=== PATIENT | male | born 1985 | race Caucasian/White ===

== ENCOUNTER 2017-11-01 09:54 | Emergency (ER) | payer OTHER ==
[2017-11-01 09:59] VITALS: BP 130/61; PULSE 85; TEMP 99; BMI 26.4
[2017-11-01] MEDS ORDERED: ALBUTEROL SO4 0.083% IH SOL 2.5 MG/3 ML VIAL.NEB. NEB ONE ×2 (10:05→10:06)
--- NOTE | 2017-11-01 10:13 | PDOC ---
History of Present Illness - General Chief Complaint: Cold Symptoms Stated Complaint: COUGH Time Seen by Provider: 11/01/17 10:01 History Source: Patient Exam Limitations: No Limitations - History of Present Illness Initial Comments: 11/01/17 10:10 31 yr male with c/o cough and sore throat for 2-3 days no fever no chills. no vomiting or diarrhea. pt has no PMHX, smoker 1ppd. no foreign travel. Past History - Past Medical History Allergies/Adverse Reactions: Allergies Allergy/AdvReac Type Severity Reaction Status Date / Time No Known Allergies Allergy Verified 11/01/17 09:56 Home Medications: Ambulatory Orders NK [No Known Home Medication] 11/01/17 COPD: No - Suicide/Smoking/Psychosocial Hx Smoking History: Current every day smoker Have you smoked in the past 12 months: Yes Number of Cigarettes Smoked Daily: 15 Information on smoking cessation initiated: Yes 'Breaking Loose' booklet given: 11/01/17 Hx Alcohol Use: No Drug/Substance Use Hx: No Substance Use Type: None Review of Systems - Review of Systems Able to Perform ROS?: Yes Is the patient limited [place] proficient: Yes Constitutional: No: Symptoms Reported HEENTM: Yes: Symptoms Reported Respiratory: Yes: Cough Cardiac (ROS): No: Symptoms Reported ABD/GI: No: Symptoms Reported : No: Symptoms Reported Musculoskeletal: No: Symptoms Reported Integumentary: No: Symptoms Reported Neurological: No: Symptoms reported *Physical Exam - Vital Signs Last Vital Signs Temp Pulse Resp BP Pulse Ox 99.0 F 85 18 130/61 100 11/01/17 09:56 11/01/17 09:56 11/01/17 09:56 11/01/17 09:56 11/01/17 09:56 - Physical Exam General Appearance: Yes: Nourished, Appropriately Dressed HEENT: positive: EOMI, JARROD, TMs Normal, Pharyngeal Erythema. negative: Tonsillar Exudate, Tonsillar Erythema Neck: positive: Supple. negative: Tender Respiratory/Chest: positive: Lungs Clear, Normal Breath Sounds, Other ( productive cough white phlegm ). negative: Chest Tender, Respiratory Distress, Labored Respiration, Rapid RR, Decreased Breath Sounds, Paradoxal Breathing, Crackles, Rales, Rhonchi, Stridor, Wheezing Cardiovascular: positive: Regular Rhythm, Regular Rate Gastrointestinal/Abdominal: positive: Normal Bowel Sounds, Soft Musculoskeletal: positive: Normal Inspection Extremity: positive: Normal Capillary Refill, Normal Inspection, Normal Range of Motion Integumentary: positive: Normal Color, Dry, Warm Neurologic: positive: Fully Oriented, Alert, Normal Mood/Affect, Normal Response , Motor Strength 5/5 Medical Decision Making - Medical Decision Making 11/01/17 10:10 cc: cough sore throat for 2-3 days no fever no vomiting no diarrhea will check for strep albuterol nebulizer CXR 11/01/17 10:12 pt stable non toxic speaking full sentences pt does not have a primary care will refer to Dr. Sawyer group *DC/Admit/Observation/Transfer Diagnosis at time of Disposition: Bronchitis - Discharge Dispostion Disposition: HOME Condition at time of disposition: Good - Referrals Referrals: Mario Sawyer MD [Staff Physician] - - Patient Instructions Printed Discharge Instructions: DI for Acute Bronchitis Additional Instructions: drink pleanty of fluids to stay hydrated use the inhaler as directed take tessalon perels for cough as needed please follow up with for further care and treatment and for primary care physician - Post Discharge Activity
== END 2017-11-01 11:08 | disposition home or self-care (01) ==
LOC: JERFT 09:54
DX: J40 Bronchitis, not specified as acute or chronic (principal)
CPT/HCPCS: 71046-TC-FY; 87070; 87430; 99281-25